=== PATIENT | male | born 1970 | race Caucasian/White ===

== ENCOUNTER 2016-05-13 19:54 | Emergency (ER) ==
[2016-05-13 20:06] VITALS: BP 171/90; TEMP 98.6; BMI 50.1
--- NOTE | 2016-05-13 20:06 | ED.PDOC ---
General ED Provider: Dr. JEROME MCPHERSON-ER Chief Complaint: Wound Check Stated Complaint: i cut a skin tag on my thigh--its still bleeding Time Seen by Physician: 20:04 Mode of Arrival: Walk-In Information Source: Patient Exam Limitations: No limitations Primary Care Provider: JEROME MCPHERSON Nursing and Triage Documentation Reviewed and Agree: Yes Skin Complaint Exam - Laceration/Lower Ext. Complaint/Exam Location of Injury: Right, Thigh Mechanism of Injury: Laceration Onset/Duration: one hour Symptoms Are: Still present Initial Severity: Mild Current Severity: Mild Aggravating: Movement Alleviating: Compression Differential Diagnoses: Laceration, Puncture Wound Review of Systems - Review Of Systems Constitutional: Reports: No symptoms Eyes: Reports: No symptoms Ears, Nose, Mouth, Throat: Reports: No symptoms Respiratory: Reports: No symptoms Cardiac: Reports: No symptoms GI: Reports: No symptoms : Reports: No symptoms Musculoskeletal: Reports: No symptoms Skin: Reports: No symptoms Neurological: Reports: No symptoms Endocrine: Reports: No symptoms Hematologic/Lymphatic: Reports: No symptoms All Other Systems: Reviewed and Negative Past Medical History - Past Medical History Endocrine: Reports: Unknown Cardiovascular: Reports: Unknown Respiratory: Reports: Unknown Hematological: Reports: Unknown Gastrointestinal: Reports: Unknown Genitourinary: Reports: Unknown Neuro/Psych: Reports: Unknown Musculoskeletal: Reports: Unknown Cancer: Reports: Unknown - Surgical History General Surgical History: Reports: Unknown - Family History Family History: Reports: Unknown - Social History Smoking Status: Current some day smoker Hx Substance Use: No Alcohol Screening: None Lives: With family Physical Exam - Physical Exam Appearance: Well-appearing, No pain distress, Well-nourished Eyes: MAYTE, EOMI, Conjunctiva clear ENT: Ears normal, Nose normal, Oropharynx normal Neck: Supple Respiratory: Airway patent, Breath sounds clear, Breath sounds equal, Respirations nonlabored Cardiovascular: RRR, Pulses normal, No rub, No murmur GI/: Soft, Nontender, No masses, Bowel sounds normal, No Organomegaly Musculoskeletal: Normal strength, ROM intact, No edema, No calf tenderness Skin: Warm Neurological: Sensation intact Psychiatric: Affect appropriate, Mood appropriate Procedures - Laceration/Wound Repair No standard instances Wound Description: Linear Wound Length (cm): 0.5cm right thigh Wound Explored: Clean Wound Irrigated: Yes Wound Prep: Hibiclens Anesthesia: Other (pt declines) Wound Repaired With: Sutures Suture Size and Type: 4.o prolene Number of Sutures: 2 Layer Closure?: No Sterile Dressing Applied?: Yes Splint Applied?: No Sling Applied?: No Re-Evaluation - Re-Evaluation Time of Re-Evaluation: 20:06 Status: Improved Vital Signs Stable: Yes Pain Level: 0 Appearance: NAD Lungs: Clear Skin: Warm and Dry Neuro: Alert and Oriented X3 CV: RRR Critical Care Note - Critical Care Note Total Time (mins): 0 Course - Course Vital Signs: Temp Pulse Resp BP Pulse Ox 05/13/16 19:54 98.6 F 69 20 171/90 H 97 Departure - Departure Time of Disposition: 20:06 Disposition: HOME SELF-CARE Discharge Problem: Wound Instructions: Laceration (ED) Condition: Good Pt referred to PMD for follow-up: Yes Additional Instructions: routine wound care--sutures out in 7 days Allergies/Adverse Reactions: Allergies No Known Allergies Allergy (Verified 05/13/16 20:02) Home Medications: Ambulatory Orders Bupropion HCl [Bupropion HCl Sr] 150 mg PO DAILY 08/02/13 Losartan/Hydrochlorothiazide [Losartan-Hctz 100-25 mg Tab] 1 tab PO DAILY Metoprolol Succinate [Toprol Xl] 100 mg PO DAILY 08/02/13 Pantoprazole Sodium 40 mg PO DAILY 08/02/13 Venlafaxine HCl [Venlafaxine HCl ER] 150 cap PO DAILY 08/02/13 Disposition Discussed With: Patient, Family
== END 2016-05-13 20:14 | disposition home or self-care (01) ==
LOC: ED 19:54
DX: S71.101A Unspecified open wound, right thigh, initial encounter (principal); W45.8XXA Other foreign body or object entering through skin, initial encounter; F17.210 Nicotine dependence, cigarettes, uncomplicated
CPT/HCPCS: 99282